=== PATIENT | female | born 1990 | race Caucasian/White ===

== ENCOUNTER → 2020-02-23 14:45 | Outpatient (BNVA) | payer OTHER, SELFPAY | PROVIDERS: Family Provider Family Medicine; PCP Family Medicine; Visit Provider Obstetrics & Gynecology | DX: Z32.01 Encounter for pregnancy test, result positive (principal) | CPT/HCPCS: 81025 ==

== ENCOUNTER → 2020-03-08 14:19 | Outpatient (BNVA) | payer OTHER, SELFPAY | PROVIDERS: Family Provider Family Medicine; PCP Family Medicine; Visit Provider Obstetrics & Gynecology | DX: Z34.01 Encounter for supervision of normal first pregnancy, first trimester (principal) | CPT/HCPCS: 86850; 86900 ==

== ENCOUNTER → 2020-03-30 11:25 | Outpatient (BNVA) | payer OTHER, SELFPAY | PROVIDERS: Family Provider Family Medicine; PCP Family Medicine; Visit Provider Obstetrics & Gynecology | DX: Z34.01 Encounter for supervision of normal first pregnancy, first trimester (principal) | CPT/HCPCS: 80053; 80307; 84315; 85027; 86592; 86762; 86803; 87077; 87086; 87186; 87340; 87806 ==

== ENCOUNTER → 2020-04-13 09:45 | Outpatient (BNVA) | payer MEDICAID, SELFPAY | PROVIDERS: Family Provider Family Medicine; PCP Family Medicine; Visit Provider Obstetrics & Gynecology | DX: O26.899 Other specified pregnancy related conditions, unspecified trimester (principal); Z67.91 Unspecified blood type, Rh negative; O34.40 Maternal care for other abnormalities of cervix, unspecified trimester; Z98.890 Other specified postprocedural states; O99.340 Other mental disorders complicating pregnancy, unspecified trimester; F41.9 Anxiety disorder, unspecified | CPT/HCPCS: 81000; 87491; 87591; 88175 ==

== ENCOUNTER → 2020-05-11 09:52 | Outpatient (BNVA) | payer MEDICAID, SELFPAY | PROVIDERS: Family Provider Family Medicine; PCP Family Medicine; Visit Provider Nurse Practitioner Women's Health | DX: O23.40 Unspecified infection of urinary tract in pregnancy, unspecified trimester (principal); Z3A.00 Weeks of gestation of pregnancy not specified | CPT/HCPCS: 80053; 81000 ==

== ENCOUNTER → 2020-06-08 09:40 | Outpatient (BNVA) | payer MEDICAID, SELFPAY | PROVIDERS: Family Provider Family Medicine; PCP Family Medicine; Visit Provider Obstetrics & Gynecology | DX: Z34.90 Encounter for supervision of normal pregnancy, unspecified, unspecified trimester (principal) | CPT/HCPCS: 81000 ==

== ENCOUNTER → 2020-06-22 08:47 | Outpatient (BNVA) | payer MEDICAID, SELFPAY | PROVIDERS: Family Provider Family Medicine; PCP Family Medicine; Visit Provider Obstetrics & Gynecology | DX: Z34.90 Encounter for supervision of normal pregnancy, unspecified, unspecified trimester (principal) | CPT/HCPCS: 81000 ==

== ENCOUNTER 2020-07-05 17:56 | Outpatient (CLI) | payer MEDICAID, SELFPAY ==
[2020-07-05] VITALS (9 sets, daily range): BP systolic 117–141; BP diastolic 71–87; PULSE 104–131; RESP 16; TEMP 36.1–36.7; BMI 30.3
--- NOTE | 2020-07-05 19:00 | PC.NURSE ---
Report given to Diane Damico RN.
[2020-07-05 19:54] LABS: Basophils % 0.2 %; Eosinophils % 0.1 %; Hematocrit 39.2 % (37.0-47.0); Hemoglobin 13.4 g/dL (11.5-15.3); Lymphocytes # 0.7 10^3/uL (0.8-4.8); Lymphocytes % 5.5 %; Mean Corpuscular HGB Conc 34.2 g/dL (30.0-36.0); Mean Corpuscular Hemoglobin 33.2 pg (28.0-34.0); Mean Platelet Volume 10.5 fL (7.4-10.4); Monocytes # 0.5 10^3/uL (0.2-0.9); Monocytes % 3.6 %; Neutrophils # 11.44 10^3/uL (1.8-7.7); Neutrophils % 90.1 %; Nucleated Red Blood Cells % 0 %; Platelet Count 235 10^3/cmm (130-400); Red Blood Count 4.04 10^6/uL (4.1-5.3); Red Cell Distribution Width 12.9 % (12.1-15.1); White Blood Count 12.7 10^3/uL (4.0-10.0)
[2020-07-05 20:10] LABS: Alanine Aminotransferase 20 U/L (0-33); Albumin Level 3.6 g/dL (3.5-5.2); Alkaline Phosphatase 83 IU/L (35-105); Aspartate Amino Transferase 20 U/L (0-32); Chloride 103 mmol/L (98-107); Glucose 88 mg/dL (65-115); Potassium 3.8 mmol/L (3.5-5.1); Sodium 138 mmol/L (136-145); Uric Acid 4.6 mg/dL (2.4-5.7)
[2020-07-05 20:22] LABS: Anion Gap 15.8 (5-19); Blood Urea Nitrogen 6 mg/dL (6-20); Calcium 9.3 mg/dL (8.5-10.5); Carbon Dioxide 23 mmol/L (22-29); Globulin 3.1 g/dL (1.3-4.6); Glomerular Filtration Rate 144.9 mL/min (90-130); Osmolality Calculated 283 mOsm/kg (285-295); Total Bilirubin 0.2 mg/dL (0.15-1.2); Total Protein 6.7 g/dL (6.6-8.7)
[2020-07-05 20:55] LABS: Urine Creatinine 68 mg/dL (28-217); Urine Protein Random 11 mg/dL
[2020-07-05 20:59] LABS: UPRO/UCREAT Ratio 0.16 mg/mg CR
== END 2020-07-05 21:23 | disposition home or self-care (01) ==
LOC: OPOB 18:06 → OBGYN 18:07
PROVIDERS: Family Provider Family Medicine; PCP Family Medicine; Visit Provider Obstetrics & Gynecology
DX: O16.9 Unspecified maternal hypertension, unspecified trimester (principal); Z3A.00 Weeks of gestation of pregnancy not specified
CPT/HCPCS: 36415; 59025; 80053; 82570; 84156; 84550; 85025; 99211

== ENCOUNTER → 2020-07-16 13:55 | Outpatient (BNVA) | payer MEDICAID, SELFPAY | PROVIDERS: Family Provider Family Medicine; PCP Family Medicine; Visit Provider Nurse Practitioner Women's Health | DX: Z34.90 Encounter for supervision of normal pregnancy, unspecified, unspecified trimester (principal) | CPT/HCPCS: 81000 ==

== ENCOUNTER → 2020-07-30 14:07 | Outpatient (BNVA) | payer MEDICAID, SELFPAY | PROVIDERS: Family Provider Family Medicine; PCP Family Medicine; Visit Provider Obstetrics & Gynecology | DX: O26.899 Other specified pregnancy related conditions, unspecified trimester (principal); Z67.91 Unspecified blood type, Rh negative; O16.9 Unspecified maternal hypertension, unspecified trimester; O34.40 Maternal care for other abnormalities of cervix, unspecified trimester; Z98.890 Other specified postprocedural states; O99.340 Other mental disorders complicating pregnancy, unspecified trimester; F41.9 Anxiety disorder, unspecified; Z3A.00 Weeks of gestation of pregnancy not specified | CPT/HCPCS: 81000; 82950; 85025; 86850 ==

== ENCOUNTER → 2020-08-04 09:02 | Outpatient (BNVA) | payer MEDICAID, SELFPAY | PROVIDERS: Family Provider Family Medicine; PCP Family Medicine; Visit Provider Obstetrics & Gynecology | DX: Z34.01 Encounter for supervision of normal first pregnancy, first trimester (principal) | CPT/HCPCS: 82951; 82952 ==

== ENCOUNTER → 2020-08-11 08:58 | Outpatient (BNVA) | payer MEDICAID, SELFPAY | PROVIDERS: Family Provider Family Medicine; PCP Family Medicine; Visit Provider Obstetrics & Gynecology | DX: Z34.90 Encounter for supervision of normal pregnancy, unspecified, unspecified trimester (principal) | CPT/HCPCS: 81000 ==

== ENCOUNTER 2020-09-01 09:58 | Outpatient (CLI) | payer MEDICAID, SELFPAY ==
--- NOTE | 2020-09-01 10:26 | ECG_ITS ---
[facility] Test Date: 2020-09-01 Pat Name: Joan Mooney Department: Room: Gender: Female Quality Tester: : 1990 Requested By: Rory Campbell Order Number: [id number] Reading MD: MARIANN GELLER Measurements Intervals [place] Rate: 114 P: 61 DC: 110 QRS: 41 QRSD: 81 T: -1 QT: 294 QTc: 405 Interpretive Statements SINUS TACHYCARDIA WITH SHORT DC INTERVAL NONSPECIFIC T-WAVE ABNORMALITY ABNORMAL RHYTHM ECG No previous ECG available for comparison Electronically Signed On 09-01-2020 20:08:57 COPY CENTER ASSOCIATE by MARIANN GELLER [email or web address] Self [email or web address] Document Preparation/store/NU/[id number]/[id number] f
== END 2020-09-01 09:59 | disposition home or self-care (01) ==
PROVIDERS: Visit Provider Obstetrics & Gynecology
DX: O13.9 Gestational [pregnancy-induced] hypertension without significant proteinuria, unspecified trimester (principal); R94.31 Abnormal electrocardiogram [ECG] [EKG]
CPT/HCPCS: 81000; 93005

== ENCOUNTER → 2020-09-08 12:57 | Outpatient (BNVA) | payer MEDICAID, SELFPAY | PROVIDERS: Visit Provider Obstetrics & Gynecology | DX: O99.340 Other mental disorders complicating pregnancy, unspecified trimester (principal); F41.9 Anxiety disorder, unspecified; O24.419 Gestational diabetes mellitus in pregnancy, unspecified control; O26.899 Other specified pregnancy related conditions, unspecified trimester; R51.9 Headache, unspecified | CPT/HCPCS: 81000 ==

== ENCOUNTER → 2020-09-13 08:15 | Outpatient (BNVA) | payer MEDICAID, SELFPAY | PROVIDERS: Visit Provider Counselor Professional | DX: F41.1 Generalized anxiety disorder (principal) | CPT/HCPCS: 90834 ==

== ENCOUNTER → 2020-09-14 07:54 | Outpatient (BNVA) | payer MEDICAID, SELFPAY | PROVIDERS: Visit Provider Obstetrics & Gynecology | DX: O24.419 Gestational diabetes mellitus in pregnancy, unspecified control (principal) | CPT/HCPCS: 81000 ==

== ENCOUNTER → 2020-09-22 12:46 | Outpatient (BNVA) | payer MEDICAID, SELFPAY | PROVIDERS: Visit Provider Obstetrics & Gynecology | DX: O24.419 Gestational diabetes mellitus in pregnancy, unspecified control (principal); O26.893 Other specified pregnancy related conditions, third trimester; Z67.91 Unspecified blood type, Rh negative; R00.2 Palpitations; O99.343 Other mental disorders complicating pregnancy, third trimester; F41.9 Anxiety disorder, unspecified; Z3A.35 35 weeks gestation of pregnancy | CPT/HCPCS: 81000; 87081; 87184 ==

== ENCOUNTER 2020-09-27 12:00 | Outpatient (CLI) | payer MEDICAID, SELFPAY ==
[2020-09-27 12:18] VITALS: BP 136/92; PULSE 86
[2020-09-27 12:19] VITALS: TEMP 36.5
[2020-09-27 12:20] VITALS: RESP 17
--- NOTE | 2020-09-27 13:06 | P.PCN_ITS ---
Procedure/Consent Procedure Narrative: NONSTRESS TEST: [place] [facility] [place] Indication: 30-year-old 1 para 0 at 36 weeks and 3 days,-GDM Date and time of test: 09/27/2020-1:50 PM Baseline: 135 Variability: Moderate variability Accelerations: Accelerations performed Decelerations: No decelerations Tocometry: no Contractions INTERPRETATION: NST reactive, correlate with BPP, continue kick counts
== END 2020-09-27 13:10 ==
LOC: OPOB 12:05 → OBGYN 12:48
PROVIDERS: Visit Provider Obstetrics & Gynecology
DX: O24.419 Gestational diabetes mellitus in pregnancy, unspecified control (principal); Z3A.00 Weeks of gestation of pregnancy not specified
CPT/HCPCS: 59025; 81000

== ENCOUNTER → 2020-10-05 10:38 | Outpatient (BNVA) | payer MEDICAID, SELFPAY | PROVIDERS: Visit Provider Obstetrics & Gynecology | DX: O24.419 Gestational diabetes mellitus in pregnancy, unspecified control (principal); R00.2 Palpitations; O26.899 Other specified pregnancy related conditions, unspecified trimester; Z67.91 Unspecified blood type, Rh negative; O99.340 Other mental disorders complicating pregnancy, unspecified trimester; F41.9 Anxiety disorder, unspecified | CPT/HCPCS: 81000 ==

== ENCOUNTER → 2020-10-07 09:21 | Outpatient (BNVA) | payer MEDICAID, SELFPAY | PROVIDERS: Visit Provider Counselor Professional | DX: F41.1 Generalized anxiety disorder (principal) | CPT/HCPCS: 90834 ==

== ENCOUNTER → 2020-10-11 13:08 | Outpatient (BNVA) | payer MEDICAID, SELFPAY | PROVIDERS: Visit Provider Obstetrics & Gynecology | DX: O24.419 Gestational diabetes mellitus in pregnancy, unspecified control (principal); O26.899 Other specified pregnancy related conditions, unspecified trimester; R00.2 Palpitations; Z67.91 Unspecified blood type, Rh negative; O99.340 Other mental disorders complicating pregnancy, unspecified trimester; F41.9 Anxiety disorder, unspecified; O99.820 Streptococcus B carrier state complicating pregnancy; Z3A.00 Weeks of gestation of pregnancy not specified | CPT/HCPCS: 81000 ==

== ENCOUNTER 2020-10-14 20:04 | Outpatient (CLI) | payer MEDICAID, SELFPAY ==
[2020-10-14] VITALS (12 sets, daily range): BP systolic 124–160; BP diastolic 76–98; PULSE 74–113; RESP 16–17; TEMP 36.6–37.3; BMI 31.8
[2020-10-14 21:20] LABS: Add Urine Microscopic? NO; Charge for UA Resulting for Rev
[2020-10-14 21:21] LABS: Basophils % 0.2 %; Hematocrit 38.7 % (37.0-47.0); Hemoglobin 13.6 g/dL (11.5-15.3); Lymphocytes # 1.1 10^3/uL (0.8-4.8); Lymphocytes % 11.2 %; Mean Corpuscular HGB Conc 35.1 g/dL (30.0-36.0); Mean Corpuscular Hemoglobin 33.8 pg (28.0-34.0); Mean Corpuscular Volume 96.3 fL (81-99); Mean Platelet Volume 10.5 fL (7.4-10.4); Monocytes # 0.4 10^3/uL (0.2-0.9); Monocytes % 4.1 %; Neutrophils # 8.15 10^3/uL (1.8-7.7); Neutrophils % 84.2 %; Nucleated Red Blood Cells % 0 %; Platelet Count 195 10^3/cmm (130-400); Red Blood Count 4.02 10^6/uL (4.1-5.3); Red Cell Distribution Width 12.6 % (12.1-15.1); White Blood Count 9.7 10^3/uL (4.0-10.0)
[2020-10-14] MEDS: lactated ringers 1,000 ML 75 ML IV (21:21)
[2020-10-14 21:23] LABS: Bilirubin Urine Neg (Negative); Blood Urine Neg (Negative); Glucose Urine UA Norm (Normal); Ketones Urine Negative (Negative); Leukocyte Esterase Urine Negative (Negative); Nitrate Urine Negative (Negative); Protein Urine Neg (Negative); Specific Gravity, Urine 1.005 (1.005-1.030); Urine Appearance Clear (CLEAR); Urine Color Yellow (Yellow); Urobilinogen Urine Norm (Negative); pH Urine 7 (5-7)
[2020-10-14 21:42] LABS: Alanine Aminotransferase 10 U/L (0-33); Albumin Level 3.5 g/dL (3.5-5.2); Alkaline Phosphatase 194 IU/L (35-105); Blood Urea Nitrogen 12 mg/dL (6-20); Calcium 8.9 mg/dL (8.5-10.5); Carbon Dioxide 22 mmol/L (22-29); Chloride 100 mmol/L (98-107); Glomerular Filtration Rate 65.1 mL/min (90-130); Glucose 103 mg/dL (65-115); Osmolality Calculated 276 mOsm/kg (285-295); Sodium 133 mmol/L (136-145); Total Bilirubin 0.3 mg/dL (0.15-1.2); Total Protein 6.5 g/dL (6.6-8.7); Uric Acid 5.8 mg/dL (2.4-5.7)
[2020-10-14 21:50] LABS: Aspartate Amino Transferase 17 U/L (0-32)
[2020-10-14 21:51] LABS: Anion Gap 14.9 (5-19); Potassium 3.9 mmol/L (3.5-5.1)
[2020-10-14 21:57] LABS: Urine Creatinine 27 mg/dL (28-217); Urine Protein Random 4 mg/dL
[2020-10-14 21:58] LABS: UPRO/UCREAT Ratio 0.15 mg/mg CR
== END 2020-10-14 22:32 | disposition home or self-care (01) ==
LOC: OPOB 20:10 → OBGYN 22:06
PROVIDERS: Visit Provider Obstetrics & Gynecology
DX: O16.9 Unspecified maternal hypertension, unspecified trimester (principal); Z3A.00 Weeks of gestation of pregnancy not specified
CPT/HCPCS: 36415; 59025; 80053; 81003; 82570; 84156; 84550; 85025; 99211

== ENCOUNTER → 2020-10-15 12:41 | Outpatient (BNVA) | payer MEDICAID, SELFPAY | PROVIDERS: Visit Provider Obstetrics & Gynecology | DX: Z20.822 Contact with and (suspected) exposure to COVID-19 (principal) | CPT/HCPCS: 87635 ==

== ENCOUNTER 2020-10-18 12:05 | Inpatient (IN) | payer MEDICAID, SELFPAY ==
[2020-10-18] VITALS (65 sets, daily range): BP systolic 109–183; BP diastolic 58–95; PULSE 63–196; TEMP 36.8–37.6; O2SAT 82–99; BMI 32.0
[2020-10-18 13:23] LABS: Glucose Point of Care 98 mg/dL (70-110)
[2020-10-18 14:03] LABS: Basophils % 0.2 %; Eosinophils % 0.3 %; Hematocrit 40.8 % (37.0-47.0); Lymphocytes # 1.2 10^3/uL (0.8-4.8); Lymphocytes % 13.5 %; Mean Corpuscular HGB Conc 34.3 g/dL (30.0-36.0); Mean Corpuscular Hemoglobin 33.3 pg (28.0-34.0); Mean Corpuscular Volume 97.1 fL (81-99); Mean Platelet Volume 11.3 fL (7.4-10.4); Monocytes # 0.5 10^3/uL (0.2-0.9); Monocytes % 5.3 %; Neutrophils # 7.15 10^3/uL (1.8-7.7); Neutrophils % 80.5 %; Nucleated Red Blood Cells % 0 %; Platelet Count 220 10^3/cmm (130-400); Red Cell Distribution Width 12.8 % (12.1-15.1); White Blood Count 8.9 10^3/uL (4.0-10.0)
[2020-10-18 14:16] LABS: Alanine Aminotransferase 9 U/L (0-33); Albumin Level 3.5 g/dL (3.5-5.2); Alkaline Phosphatase 210 IU/L (35-105); Anion Gap 15.5 (5-19); Aspartate Amino Transferase 24 U/L (0-32); Blood Urea Nitrogen 14 mg/dL (6-20); Calcium 9.5 mg/dL (8.5-10.5); Carbon Dioxide 23 mmol/L (22-29); Chloride 104 mmol/L (98-107); Globulin 3.3 g/dL (1.3-4.6); Glomerular Filtration Rate 144.9 mL/min (90-130); Glucose 90 mg/dL (65-115); Osmolality Calculated 286 mOsm/kg (285-295); Potassium 4.5 mmol/L (3.5-5.1); Sodium 138 mmol/L (136-145); Total Bilirubin 0.2 mg/dL (0.15-1.2); Total Protein 6.8 g/dL (6.6-8.7); Uric Acid 5.4 mg/dL (2.4-5.7)
[2020-10-18] MEDS: sodium chloride 0.9% 1,000 ML 125 ML IV (14:40)
[2020-10-18] MEDS: ampicillin 2,000 MG in sodium chloride 0.9% (plus) 50 ML 100 MG IV (14:41)
[2020-10-18] MEDS: hyDROXYzine 25 mg Capsule 50 MG PO (14:41)
[2020-10-18 14:54] LABS: Glucose Point of Care 83 mg/dL (70-110)
[2020-10-18] MEDS: miSOPROStol 100 mcg tablet 25 MCG VAGINAL (15:12)
[2020-10-18 16:13] LABS: Glucose Point of Care 130 mg/dL (70-110)
[2020-10-18 16:41] LABS: Bilirubin Urine Neg (Negative); Blood Urine Neg (Negative); Glucose Urine UA Norm (Normal); Ketones Urine Negative (Negative); Leukocyte Esterase Urine Negative (Negative); Nitrate Urine Negative (Negative); Protein Urine Neg (Negative); Urine Appearance Clear (CLEAR); Urine Color Straw (Yellow); Urobilinogen Urine Norm (Negative); pH Urine 6.5 (5-7)
[2020-10-18 16:42] LABS: Bacteria Urine TRACE /hpf; Squamous Epithelial Cell Urine RARE /hpf (0-5)
[2020-10-18 16:48] LABS: Urine Creatinine 35 mg/dL (28-217); Urine Protein Random 5 mg/dL
[2020-10-18 16:50] LABS: UPRO/UCREAT Ratio 0.14 mg/mg CR
--- NOTE | 2020-10-18 18:00 | P.HPUD_ITS ---
Labor & Delivery H&P Update Date of Procedure: October 19, 2020 Date H&P Performed: 10/18/20 H&P update information: I have reviewed H&P completed within last 30 days, I have examined patient prior to procedure, No changes to prior documentation and H&P is in [facility] [place] on date indicated Admission Diagnosis: Preop diagnosis: labor
[2020-10-18] MEDS: ampicillin 1,000 MG in sodium chloride 0.9% (plus) 50 ML 100 MG IV (19:06)
[2020-10-18 19:12] LABS: Glucose Point of Care 76 mg/dL (70-110)
[2020-10-18] MEDS: dextrose 5%-lactated ringers 1,000 ML 125 ML IV (19:31)
[2020-10-18 21:03] LABS: Glucose Point of Care 91 mg/dL (70-110)
[2020-10-18] MEDS: propranolol 20 mg Tablet 10 MG PO (21:34)
[2020-10-18] MEDS: lactated ringers 1,000 ML 999 ML IV (21:41)
--- NOTE | 2020-10-18 22:45 | ANES.PREANE2 ---
Pre-Anesthetic Assessment Pre-Anesthetic Assessment: Height/Weight: Height 1.57 m Weight 79.379 kg Temp Pulse BP Pulse Ox 99.7 F H 64 139/81 96 10/18/20 21:30 10/18/20 22:27 10/18/20 22:27 10/18/20 20:47 Preop Diagnosis: labor Proposed Procedure: epidural Was Beta Sergo taken within 24 hours: Yes Was Clonidine taken within 24 hours: N/A Last Intake: 21:00 Social: Social History: No alcohol and No tobacco Exam: Pre-Anes Outpt Exam: alert, oriented x 3, clear to auscultation bilaterally and regular rate & rhythm Airway: Submandibular: WNL Cervical ROM: WNL MP: 1 Dentition: Full Pulmonary: Pulmonary: None reported CV/HEM: CV/HEM: Arrythmia : : None reported Hepatic: Hepatic: None reported GI: GI: GERD (with ) Metabolic: Metabolic: DM (gestational controlled with diet) Musc/skel: Musc/skel: None reported Neuropsych: Neuropsych: Anxiety Anesthetic Plan: ASA status: 2 Anesthesia: Eval. for regional block and Regional (specify below) (epidural) Risk of > 500 ml blood loss (7ml/kg in children): No Meds/Allergies Current Medications: Current Medications Generic Name Dose Route Start Last Admin Trade Name Freq PRN Reason Stop Dose Admin Hydroxyzine Pamoat e 50 mg 10/18/20 13:27 10/18/20 14:41 Hydroxyzine 25 M g Capsule PO 50 mg QID PRN Administration sleep, agitation or itching Dextrose/Lactated Ringer's 1,000 mls @ 125 m ls/hr 10/18/20 13:30 10/18/20 19:31 Dextrose 5%-Lact ated Ringers IV 125 mls/hr .Q8H LIBERTY Administration Sodium Chloride 1,000 mls @ 125 m ls/hr 10/18/20 13:30 10/18/20 14:40 Sodium Chloride 0.9% IV 125 mls/hr .Q8H LIBERTY Administration Ampicillin Sodium 1,000 mg/ 50 mls @ 100 mls/ hr 10/18/20 17:38 10/18/20 19:06 Sodium Chloride IV 100 mls/hr Q4H LIBERTY Administration Protocol Propranolol HCl 10 mg 10/18/20 21:00 10/18/20 21:34 Propranolol 20 M g Tablet PO 10 mg BEDTIME LIBERTY Administration PFSH Anesthesia PFSH: Medical History Anxiety Diagnosed in her early 20s and has been on and off medication in the past. Has not been on any medicine in about 5 months. This is managed by Dr. 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 Negative margins and post LEEP ECC negative in 2018 No pertinent past medical history Denies diabetes, asthma, hypertension, seizures, DVT/PE. PCP: [facility] H/O LEEP (03/28/18) -Office LEEP on 03/28/2018 done at [facility] for VISHAL-3 on biopsy--- performed by Dr. Goins. Pathology showed VISHAL-3 in both the anterior and posterior lips with negative margins and post LEEP ECC was also negative. Family History Grandmother Lung cancer Maternal grandmother Brain cancer Paternal grandmother Father Heart disease Family/Other Stroke Paternal uncle Family/Other Cervical cancer Paternal cousin-- had cervical cancer or precancer that was treated with surgery Denies family history of Colon cancer Ovarian cancer Diabetes Hyperlipidemia Breast cancer Hypertension Uterine cancer Thyroid condition Social History Smoking and tobacco status: former smoker Alcohol intake: never Additional social history: - Female Reproductive History: : 1 Data Anesthesia CBC & Chem 7: 10/18/20 13:08 10/18/20 13:08 Other Labs: Laboratory Results - last 48 hr 10/18/20 10/18/20 10/18/20 13:08 13:08 13:12 WBC 8.9 RBC 4.20 Hgb 14.0 Hct 40.8 MCV 97.1 MCH 33.3 MCHC 34.3 RDW 12.8 Plt Count 220 MPV 11.3 H Neut % (Auto) 80.5 Lymph % (Auto) 13.5 [place] % (Auto) 5.3 Eos % (Auto) 0.3 Baso % (Auto) 0.2 Neut # (Auto) 7.15 Lymph # (Auto) 1.2 [place] # (Auto) 0.5 Eos # (Auto) 0.0 Baso # (Auto) 0.0 Nucleated RBC % (auto) 0 Nucleated RBCs # 0.0 Sodium 138 Potassium 4.5 Chloride 104 Carbon Dioxide 23 Anion Gap 15.5 BUN 14 Creatinine 0.5 GFR Calculation 144.9 H Glucose 90 POC Glucose 98 Calculated Osmolality 286 Uric Acid 5.4 Calcium 9.5 Total Bilirubin 0.2 AST 24 ALT 9 Alkaline Phosphatase 210 H Total Protein 6.8 Albumin 3.5 Globulin 3.3 Urine Color Urine Appearance Urine pH Ur Specific [place] Urine Protein Urine Glucose (UA) Urine Ketones Urine Blood Urine Nitrate Urine Bilirubin Urine Urobilinogen Ur Leukocyte Esterase Urine RBC Urine WBC Ur Squamous Epith Cells Amorphous Sediment Urine Bacteria U Random Total Protein Urine Creatinine Protein/Creatinin Ratio 10/18/20 10/18/20 10/18/20 14:30 14:30 14:39 WBC RBC Hgb Hct MCV MCH MCHC RDW Plt Count MPV Neut % (Auto) Lymph % (Auto) [place] % (Auto) Eos % (Auto) Baso % (Auto) Neut # (Auto) Lymph # (Auto) [place] # (Auto) Eos # (Auto) Baso # (Auto) Nucleated RBC % (auto) Nucleated RBCs # Sodium Potassium Chloride Carbon Dioxide Anion Gap BUN Creatinine GFR Calculation Glucose POC Glucose 83 Calculated Osmolality Uric Acid Calcium Total Bilirubin AST ALT Alkaline Phosphatase Total Protein Albumin Globulin Urine Color Straw Urine Appearance Clear Urine pH 6.5 Ur Specific [place] 1.010 Urine Protein Neg Urine Glucose (UA) Norm Urine Ketones Negative Urine Blood Neg Urine Nitrate Negative Urine Bilirubin Neg Urine Urobilinogen Norm Ur Leukocyte Esterase Negative Urine RBC None Urine WBC None Ur Squamous Epith Cells Rare Amorphous Sediment Not Reportable Urine Bacteria Trace U Random Total Protein 5 Urine Creatinine 35 Protein/Creatinin Ratio 0.14 10/18/20 10/18/20 10/18/20 16:06 19:06 20:59 WBC RBC Hgb Hct MCV MCH MCHC RDW Plt Count MPV Neut % (Auto) Lymph % (Auto) [place] % (Auto) Eos % (Auto) Baso % (Auto) Neut # (Auto) Lymph # (Auto) [place] # (Auto) Eos # (Auto) Baso # (Auto) Nucleated RBC % (auto) Nucleated RBCs # Sodium Potassium Chloride Carbon Dioxide Anion Gap BUN Creatinine GFR Calculation Glucose POC Glucose 130 H 76 91 Calculated Osmolality Uric Acid Calcium Total Bilirubin AST ALT Alkaline Phosphatase Total Protein Albumin Globulin Urine Color Urine Appearance Urine pH Ur Specific [place] Urine Protein Urine Glucose (UA) Urine Ketones Urine Blood Urine Nitrate Urine Bilirubin Urine Urobilinogen Ur Leukocyte Esterase Urine RBC Urine WBC Ur Squamous Epith Cells Amorphous Sediment Urine Bacteria U Random Total Protein Urine Creatinine Protein/Creatinin Ratio Cardiac Studies: No Data to Display
[2020-10-19] VITALS (51 sets, daily range): BP systolic 97–138; BP diastolic 58–85; PULSE 59–105; RESP 16–18; TEMP 36.1–37.7
--- NOTE | 2020-10-19 00:10 | ANES.PROC ---
Anesthesia Procedures Procedure/Date: 10/19/20 Epidural: Time Out Performed: Yes Consents Signed: Procedure Consent and NPO Consent Consent: requested by attending/covering physician, from patient, risks and benefits reviewed and patient agrees to proceed Lumbar Level: L3-L4 Epidural position: sitting Epidural procedure: sterile prep of area (betadine), 1% lidocaine to numb the area (3ml), 18 g needle, neg for paresthesia, test dose given, 1.5% xylocaine 1:200k epi (3ml), 0.2% Ropivacaine bolus ml (5ml), placed PCEA, no systemic response, sterile dressing applied, L.U.D. no apparent complications and 0.2% Ropiavacaine @ mls/hr (10ml/hr) Additional Comments: Unable to get access L4/5, moved L2/3 unable to get access. Dr Ocampo in and got TERRENCE at L2/3 at 6cm. Pt tolerated well.
[2020-10-19 00:13] LABS: Glucose Point of Care 120 mg/dL (70-110)
[2020-10-19] MEDS: lidocaine 2% INJ 20 mL INJECTION (02:10)
[2020-10-19] MEDS: oxytocin 30 UNIT/500 ML BAG 600 UNIT IV (02:10)
[2020-10-19] MEDS: miSOPROStol 200 mcg Tablet 800 MCG PR (02:19)
--- NOTE | 2020-10-19 02:50 | P.PCNOB_ITS ---
Delivery Note: Date of delivery: October 19, 2020 - PRE-DELIVERY DIAGNOSIS: 30-year-old 1 para 0 at 39 weeks and 3 days gestation Induction of labor for nonreassuring testing GBS positive-antibiotics in labor Rh--RhoGam candidate Anxiety on medication Gestational diabetic-well controlled by diet Palpitations on propranolol POST-DELIVERY DIAGNOSIS: Vaginal delivery on 10/19/2020 Anxiety on medication Palpitations on propranolol PROCEDURE: Vaginal delivery on 10/19/2020 ANESTHESIA: Epidural anesthesia-2% lidocaine DELIVERING PHYSICIAN: Rory Goins FACOG PRE-DELIVERY COURSE: Ms. Mooney is a 30-year-old 1 para 0 at 39 weeks and 3 days who presented for routine visit to women's health care on 10/18/2020. She had noticed increasing blood pressures at home which is thought to be secondary to anxiety. She had been seen on labor and delivery on 10/14/2020 and lab work was negative for preeclampsia. And blood pressures returned to normal after patient had calmed down a little bit. When she presented to the clinic she was doing well however biophysical profile was 4 out of 10 with nonreactive NST no movement and no tone and as a result given that she was already full-term decision was made to induce labor. This was discussed with her and risk benefits and alternatives discussed and patient desired induction and was sent to labor and delivery for this. -On initial evaluation on labor and delivery she was noted to be 2-1/2 cm, 50% and -3 station induction was started with Cytotec that was placed at 3 PM. She had periodic episodes of variables and late decelerations at always recovered with fluid bolus and position change and they were not recurrent. Fingerstick monitoring was done initially every 4 hours and then every 2 hours once in active labor and remained at target. She had spontaneous rupture of membranes at 8:46 PM while being checked and fluid was noted to be clear. She was uncomfortable after this and tracing was largely category 1 with regular contractions every 2 to 4 minutes. Epidural was placed and after the epidural she was noted to be 8 cm at 11 PM and fully dilated at 12:59 PM and +2 station. She was set up in lithotomy position ready to push. Given the gestational diabetes and random decelerations sanding line operator Dr. Ramos was notified and was present. DELIVERY NOTE: She was set up in lithotomy position and was pushing effectively. She was noted to be +3 station and continued pushing well. The head delivered in ALAN position and then switched to direct OP, nuchal cord x1 was present which was reduced after delivery of the head. The shoulders and rest of the body followed with her next push. The baby's mouth and nose were suctioned and the baby was placed on the mother's belly. Once cord pulsations stopped the cord was clamped and cut. The placenta delivered spontaneously intact with membranes and was discarded. The fundus was noted to be firm and well contracted. The vagina and cervix were inspected and no cervical or sulcal lacerations were noted. There is a second- degree tear noted on the perineum which was repaired with 3-0 Vicryl in a continuous interlocking fashion and good hemostasis and reapproximation was obtained. She also had first-degree vaginal tear on the right labia which was repaired with 3-0 Vicryl on an SH and good reapproximation and hemostasis was achieved. At the end of the repair the lower uterine segment was a little boggy and clots were evacuated and 800 mcg of Cytotec was placed per rectum and with this and uterine massage the tone improved. Her rectal exam revealed intact sphincter and mucosa. Baby boy, Oseas born at 1:50 AM on 10/19/2020 with 7/8, weighing 7 pounds 6 ounces, 3335 g, 20.5 inches long. Placenta was delivered spontaneously intact with membranes at 2:03 AM. Cotyledons were intact , inserted umbilical cord with 3 vessels noted. Estimated blood loss 300 mL. Complications-none, both baby and mother were left to recover in a stable condition This documentation was created by [employer] nursery school attendant software (known for inherent nursery school attendant error). Every effort was made to assure accuracy of nursery school attendant. Any obvious errors or omissions should be clarified with the author of the document. Coding Level of Care Code Acute Tobacco Packing Machine Operator for Chg Fwd History History History 1 Term 1 Miscarriages/Ectopic 0 0 Living Children 1 Other History: X 1 1---> 10/19/2020--full-term delivery at 39 weeks and 3 days-induction for BPP of 4 out of 10-vaginal delivery of a baby boy Oseas weighing [address] Goins at [facility] [place]. Second-degree perineal tear. Epidural.
[2020-10-19] MEDS: docusate sodium 100 mg Capsule PO (09:53)
[2020-10-19] MEDS: prenatal vitamin Capsule 1 CAP PO (09:53)
[2020-10-19] MEDS: sertraline 50 mg Tablet PO (09:53)
[2020-10-19] MEDS: ibuprofen 800 mg tablet PO ×3 (09:53→20:35)
[2020-10-19 15:30] LABS: Hematocrit 36.4 % (37.0-47.0); Hemoglobin 12.5 g/dL (11.5-15.3); Mean Corpuscular HGB Conc 34.3 g/dL (30.0-36.0); Mean Corpuscular Hemoglobin 33.5 pg (28.0-34.0); Mean Corpuscular Volume 97.6 fL (81-99); Mean Platelet Volume 10.9 fL (7.4-10.4); Platelet Count 173 10^3/cmm (130-400); Red Blood Count 3.73 10^6/uL (4.1-5.3); Red Cell Distribution Width 12.6 % (12.1-15.1); White Blood Count 13.3 10^3/uL (4.0-10.0)
[2020-10-19] MEDS: propranolol 20 mg Tablet 10 MG PO (20:35)
[2020-10-20 04:07] VITALS: BP 110/72; PULSE 73
--- NOTE | 2020-10-20 07:18 | P.DS_ITS ---
Discharge Providers Date of Admission: 10/18/20 12:05 Date of Discharge: October 20, 2020 Attending Provider at Admission: Rory Goins Attending Provider at Discharge: Rory Goins PRE-DELIVERY DIAGNOSIS: 30-year-old 1 para 0 at 39 weeks and 3 days gestation Induction of labor for nonreassuring testing GBS positive-antibiotics in labor Rh--RhoGam candidate Anxiety on medication Gestational diabetic-well controlled by diet Palpitations on propranolol POST-DELIVERY DIAGNOSIS: Vaginal delivery on 10/19/2020 Anxiety on medication Palpitations on propranolol PROCEDURE: Vaginal delivery on 10/19/2020 ANESTHESIA: Epidural anesthesia-2% lidocaine DELIVERING PHYSICIAN: Rory Goins FACOG PRE-DELIVERY COURSE: Ms. Mooney is a 30-year-old 1 para 0 at 39 weeks and 3 days who presented for routine visit to women's health care on 10/18/2020. She had noticed increasing blood pressures at home which is thought to be secondary to anxiety. She had been seen on labor and delivery on 10/14/2020 and lab work was negative for preeclampsia. And blood pressures returned to normal after patient had calmed down a little bit. When she presented to the clinic she was doing well however biophysical profile was 4 out of 10 with nonreactive NST no movement and no tone and as a result given that she was already full-term decision was made to induce labor. This was discussed with her and risk benefits and alternatives discussed and patient desired induction and was sent to labor and delivery for this. -On initial evaluation on labor and delivery she was noted to be 2-1/2 cm, 50% and -3 station induction was started with Cytotec that was placed at 3 PM. She had periodic episodes of variables and late decelerations at always recovered w ith fluid bolus and position change and they were not recurrent. Fingerstick monitoring was done initially every 4 hours and then every 2 hours once in active labor and remained at target. She had spontaneous rupture of membranes at 8:46 PM while being checked and fluid was noted to be clear. She was uncomfortable after this and tracing was largely category 1 with regular contractions every 2 to 4 minutes. Epidural was placed and after the epidural she was noted to be 8 cm at 11 PM and fully dilated at 12:59 PM and +2 station. She was set up in lithotomy position ready to push. Given the gestational diabetes and random decelerations research computing specialist Dr. Ramos was notified and was present. DELIVERY NOTE: She was set up in lithotomy position and was pushing effectively. She was noted to be +3 station and continued pushing well. The head delivered in ALAN position and then switched to direct OP, nuchal cord x1 was present which was reduced after delivery of the head. The shoulders and rest of the body followed with her next push. The baby's mouth and nose were suctioned and the baby was placed on the mother's belly. Once cord pulsations stopped the cord was clamped and cut. The placenta delivered spontaneously intact with membranes and was discarded. The fundus was noted to be firm and well contracted. The vagina and cervix were inspected and no cervical or sulcal lacerations were noted. There is a second- degree tear noted on the perineum which was repaired with 3-0 Vicryl in a continuous interlocking fashion and good hemostasis and reapproximation was obtained. She also had first-degree vaginal tear on the right labia which was repaired with 3-0 Vicryl on an SH and good reapproximation and hemostasis was achieved. At the end of the repair the lower uterine segment was a little boggy and clots were evacuated and 800 mcg of Cytotec was placed per rectum and with this and uterine massage the tone improved. Her rectal exam revealed intact sphincter and mucosa. Baby boy, Oseas born at 1:50 AM on 10/19/2020 with 7/8, weighing 7 pounds 6 ounces, 3335 g, 20.5 inches long. Placenta was delivered spontaneously intact with membranes at 2:03 AM. Cotyledon s were intact , inserted umbilical cord with 3 vessels noted. Estimated blood loss 300 mL. Complications-none, both baby and mother were left to recover in a stable condition HOSPITAL COURSE: She underwent an uncomplicated vaginal delivery on 10/19/2020. She did well on day 0 and was ambulating well, tolerating regular diet, voiding freely, passing flatus. She was breast-feeding without difficulty and bonding well with her son. She desired to have have him circumcised and this was performed on day of life 1-10/20/2020 without any difficulty after clearance from research computing specialist Dr. Valdez. Pain was well-controlled with by mouth pain medication. She denied nausea, vomiting, fever, chills, shortness of breath, leg pain. She had moderate vaginal bleeding. On day # 1 she continued to do well with stable vital signs and stable hemoglobin at 12.5. She was discharged home on day 1 in a stable condition, as she desired early discharge. Warning signs for endometritis, mastitis, DVT/PE were reviewed with her. Post delivery activity restrictions were also reviewed with her at all her questions were answered to her satisfaction. Plans on using control pills for contraception. When she comes in for 6-week visit she will have 2- hour GTT fasting. She recieved rhogam on 10/20/2020 prior to discharge. EXAM AT DISCHARGE: Gen.: No acute distress Heart: S1-S2 heard, regular rate and rhythm Lungs: Clear to auscultation bilaterally Abdomen: Soft, fundus firm below umbilicus, Legs: No calf tenderness, trace bilateral pitting pedal edema. CONDITION AT DISCHARGE: Stable This documentation was created by [employer] director game software (known for inherent director game error). Every effort was made to assure accuracy of director game. Any obvious errors or omissions should be clarified with the author of the document. Reason for Visit Reason for Visit: Induction Discharge Data Data Completed and Pending: Pending at discharge Category Date Time Status Complete Crossmat ch Routine Lab 10/18/20 15:10 Results Rho D Immune Glob ulin Routine Lab 10/18/20 15:10 Results Type and Screen R outine Lab 10/18/20 15:10 Results Labs from last 24 hours 10/19/20 10/19/20 10/18/20 15:15 15:15 15:10 WBC 13.3 H RBC 3.73 L Hgb 12.5 Hct 36.4 L MCV 97.6 MCH 33.5 MCHC 34.3 RDW 12.6 Plt Count 173 MPV 10.9 H Blood Type A Negative Rho(D) Type Negative / 0 Antibody Screen Negative Screen Negative Vitals: Last Vital Signs Temp 97.2 F L 10/19/20 22:08 Pulse 73 10/20/20 04:07 Resp 18 10/19/20 15:56 BP 110/72 10/20/20 04:07 Pulse Ox 90 10/18/20 23:57 Discharge Plan Discharge Condition: Stable Prescriptions: New docusate sodium 100 mg Capsule 100 mg PO BID PRN (Reason: constipation) Qty: 30 RF: 0 ibuprofen 800 mg tablet 800 mg PO Q8H Qty: 30 RF: 0 Continued prenat.vits,ty,cjq-ooey-ndefr Tablet 1 tab PO DAILY RF: 0 (DME) blood-glucose meter Misc See Rx Instructions .ROUTE .MEDSUPPLY Qty: 1 RF: 0 (DME) lancets [BD Ultra Fine Lancets] 33 gauge misc See Rx Instructions .ROUTE .MEDSUPPLY Qty: 100 RF: 4 (DME) Blood Glucose Test Strip See Rx Instructions .ROUTE .MEDSUPPLY Qty: 100 RF: 4 sertraline [Zoloft] 50 mg tablet 50 mg PO DAILY Qty: 30 RF: 1 propranolol 10 mg tablet 10 mg PO DAILY Qty: 30 RF: 0 ascorbate calcium (vitamin C) 500 mg tablet 500 mg PO DAILY RF: 0 cholecalciferol (vitamin D3) 25 mcg (1,000 unit) capsule 25 mcg PO DAILY RF: 0 (DME) breast pump [Pump In Style Advanced] Device See Rx Instructions .ROUTE .MEDSUPPLY Qty: 1 RF: 0 Discharge Orders: Discharge Order (Routine); Ordered 10/20/20 Ordered By: Rory Campbell Referrals: Rory Campbell MD [Physician] - (6-week visit-fasting 2-hour GTT to be done) Patient Instructions: Vitamins (By mouth), Pre-eclampsia and Eclampsia (DC), Bleeding (DC), OB Discharge Report, OB Food/Drug Interaction Guide, Opioid Safety, OB Vaginal Deliveries - [facility] Activity Restrictions/Additional Instructions: Pelvic rest for 6 weeks, no heavy lifting for 6 weeks Discharge Attestations 2 Time Spent in Discharge Care*: greater than 30 min Quality Metrics Clinical Quality Measures During this hospital stay, did patient experience: None Coding Level of Care Code Acute Chg FW DC note
[2020-10-20 10:58] VITALS: BP 158/82; PULSE 91; RESP 16; TEMP 36.1; TEMP 37.1
[2020-10-20 10:59] VITALS: BP 170/84; PULSE 91; TEMP 37.1
[2020-10-20 11:00] VITALS: BP 144/72; BP 158/82; PULSE 84; PULSE 91; RESP 16; TEMP 37.1
[2020-10-20 11:09] VITALS: BP 144/72; PULSE 84
== END 2020-10-20 11:55 | disposition home or self-care (01) | DRG 806 ==
PROVIDERS: Obstetrics & Gynecology; Admitting Provider Obstetrics & Gynecology; Visit Provider Obstetrics & Gynecology
DX: O99.344 Other mental disorders complicating childbirth (principal); O36.0930 Maternal care for other rhesus isoimmunization, third trimester, not applicable or unspecified; Z37.0 Single live birth; F41.9 Anxiety disorder, unspecified; O24.420 Gestational diabetes mellitus in childbirth, diet controlled; O99.824 Streptococcus B carrier state complicating childbirth; O76 Abnormality in fetal heart rate and rhythm complicating labor and delivery; O69.2XX0 Labor and delivery complicated by other cord entanglement, with compression, not applicable or unspecified; O70.1 Second degree perineal laceration during delivery; Z3A.39 39 weeks gestation of pregnancy; O75.89 Other specified complications of labor and delivery; Z86.001 Personal history of in-situ neoplasm of cervix uteri; Z87.891 Personal history of nicotine dependence; I10 Essential (primary) hypertension; R00.2 Palpitations
CPT/HCPCS: 36415; 36416; 59025; 59409; 80053; 81001; 82570; 82962; 84156; 84315; 84550; 85025; 85027; 85460; 86850; 86900; 90384; 96372; 98960; J0290; J7030

== ENCOUNTER → 2020-11-30 09:07 | Outpatient (BNVA) | payer MEDICAID, SELFPAY | PROVIDERS: Visit Provider Obstetrics & Gynecology | DX: O26.899 Other specified pregnancy related conditions, unspecified trimester (principal); R51.9 Headache, unspecified; O99.340 Other mental disorders complicating pregnancy, unspecified trimester; F41.9 Anxiety disorder, unspecified | CPT/HCPCS: 82950 ==

== ENCOUNTER → 2021-12-19 09:29 | Outpatient (BNVA) | payer OTHER, MEDICAID, SELFPAY | PROVIDERS: Visit Provider Obstetrics & Gynecology | DX: O24.419 Gestational diabetes mellitus in pregnancy, unspecified control (principal); Z3A.00 Weeks of gestation of pregnancy not specified | CPT/HCPCS: 82947; 83036; 87624; 88175 ==

== ENCOUNTER → 2022-07-01 13:24 | Outpatient (BNVA) | payer OTHER, MEDICAID, SELFPAY | PROVIDERS: Visit Provider Nurse Practitioner Family | DX: J02.9 Acute pharyngitis, unspecified (principal); R50.9 Fever, unspecified; U07.1 COVID-19 | CPT/HCPCS: 87071; 87400; 87426; 87880 ==

== ENCOUNTER 2023-06-07 08:49 | Outpatient (CLI) | payer MEDICAID, SELFPAY ==
--- NOTE | 2023-06-07 08:52 | MM_ITS ---
WS: [id number] BILATERAL 3D TOMOSYNTHESIS DIGITAL DIAGNOSTIC MAMMOGRAPHY WITH CAD CLINICAL INFORMATION: NIPPLE DISCHARGE HISTORY: Bilateral clear to white nipple discharge COMPARISON: Baseline TECHNIQUE: Bilateral CC, MLO, and ML views. FINDINGS: The breasts are composed of heterogeneous fibroglandular density, which can limit the detection of sm all underlying mass lesions. No suspicious focal mass, asymmetry, calcifications, or architectural distortion. Few incidental punc gagnon calcifications RIGHT breast. Bilateral subareolar ultrasound is pending for nipple discharge ULTRASOUND BREAST BILATERAL TECHNIQUE: Ultrasound bilateral breast focused area of concern. CLINICAL INFORMATION: NIPPLE DISCHARGE FINDINGS: RIGHT BREAST: Ultrasound RIGHT breast at the areola. No cystic or solid lesions. No suspicious lesion s to target for biopsy. Mild ductal ectasia. LEFT BREAST: Ultrasound LEFT breast areola. No cystic or solid lesions. No suspicious lesions to targ et for biopsy. Mild ductal ectasia. IMPRESSION: MM/[id number] BI-RADS: 2-Benign FOLLOW UP: Age 40 Recommend annual screen mammography age 40
--- NOTE | 2023-06-07 09:53 | US_ITS ---
WS: [id number] BILATERAL 3D TOMOSYNTHESIS DIGITAL DIAGNOSTIC MAMMOGRAPHY WITH CAD CLINICAL INFORMATION: NIPPLE DISCHARGE HISTORY: Bilateral clear to white nipple discharge COMPARISON: Baseline TECHNIQUE: Bilateral CC, MLO, and ML views. FINDINGS: The breasts are composed of heterogeneous fibroglandular density, which can limit the detection of sm all underlying mass lesions. No suspicious focal mass, asymmetry, calcifications, or architectural distortion. Few incidental punc gagnon calcifications RIGHT breast. Bilateral subareolar ultrasound is pending for nipple discharge ULTRASOUND BREAST BILATERAL TECHNIQUE: Ultrasound bilateral breast focused area of concern. CLINICAL INFORMATION: NIPPLE DISCHARGE FINDINGS: RIGHT BREAST: Ultrasound RIGHT breast at the areola. No cystic or solid lesions. No suspicious lesion s to target for biopsy. Mild ductal ectasia. LEFT BREAST: Ultrasound LEFT breast areola. No cystic or solid lesions. No suspicious lesions to targ et for biopsy. Mild ductal ectasia. IMPRESSION: US/US breast BI limited* [id number] BI-RADS: 2-Benign FOLLOW UP: Age 40 Recommend annual screen mammography age 40
== END 2023-06-07 08:50 | disposition home or self-care (01) ==
LOC: RAD 08:49
PROVIDERS: PCP Nurse Practitioner Family; Visit Provider Nurse Practitioner Family
DX: N64.52 Nipple discharge (principal)
CPT/HCPCS: 76642; 77062; G0279